=== PATIENT | female | born 1955 | race African-American/Black ===

== ENCOUNTER 2017-03-07 11:01 | Observation (INO) | payer OTHER ==
[2017-03-07 13:18] LABS: APPEARANCE,URINE CLEAR; BILIRUBIN,URINE NEGATIVE (NEGATIVE); GLUCOSE, URINE NEGATIVE (NEGATIVE); KETONES,URINE NEGATIVE (NEGATIVE); LEUKOCYTE ESTERASE,URINE NEGATIVE (NEGATIVE); NITRITE,URINE NEGATIVE (NEGATIVE); PROTEIN,URINE 30 mg/dL (NEGATIVE); URINE SPECIFIC GRAVITY 1.009; UROBILINOGEN,URINE NEGATIVE mg/dL (<2.0)
[2017-03-07 13:24] LABS: ABSOLUTE EOSINOPHILS # (AUTO) 0.1 10^3/uL (0.0-0.6); ABSOLUTE LYMPHOCYTES (AUTO) 1.4 10^3/uL (0.5-4.7); ABSOLUTE MONOCYTES (AUTO) 0.4 10^3/uL (0.1-1.4); ABSOLUTE NEUT (AUTO) 4.3 10^3/uL (1.7-8.2); BASOPHILS % (AUTO) 0.3 % (0-2); EOSINOPHILS % (AUTO) 1.4 % (0-6); HEMATOCRIT 39.5 % (36.0-47.0); HGB HCT DIFFERENCE -0.5; MEAN CORPUSCULAR HEMOGLOBIN 27.1 pg (27.0-33.4); MEAN CORPUSCULAR HGB CONC 32.8 g/dL (32.0-36.0); MEAN CORPUSCULAR VOLUME 83 fl (80-97); MONOCYTES % (AUTO) 6.5 % (3-13); RED BLOOD COUNT 4.78 10^6/uL (3.72-5.28); RED CELL DISTRIBUTION WIDTH 16.6 % (11.5-14.0); SEGMENTED NEUTROPHILS % (AUTO) 68.8 % (42-78); WHITE BLOOD COUNT 6.2 10^3/uL (4.0-10.5)
[2017-03-07] MEDS: ASPIRIN 81 MG TABLET, ENT COATED PO SCH (13:24)
[2017-03-07 13:45] LABS: ALANINE AMINOTRANSFERASE 27 U/L (9-52); ALKALINE PHOSPHATASE 151 U/L (38-126); ANION GAP 14 (5-19); ASPARTATE AMINO TRANSFERASE 21 U/L (14-36); BILIRUBIN,DIRECT 0.4 mg/dL (0.0-0.4); BILIRUBIN,TOTAL 0.8 mg/dL (0.2-1.3); BLOOD UREA NITROGEN 8 mg/dL (7-20); CALCIUM 11.3 mg/dL (8.4-10.2); CARBON DIOXIDE 27 mmol/L (22-30); CHLORIDE 107 mmol/L (98-107); CREATINE KINASE 87 U/L (30-135); CREATININE RESULT 0.83 mg/dL (0.52-1.25); GLUCOSE 90 mg/dL (75-110); POTASSIUM 3.2 mmol/L (3.6-5.0); SODIUM 147.5 mmol/L (137-145); TOTAL PROTEIN 7.4 g/dL (6.3-8.2)
[2017-03-07 13:57] LABS: CREATINE KINASE MB 0.42 ng/mL (<4.55)
[2017-03-07 14:00] LABS: TROPONIN I < 0.012 ng/mL
[2017-03-07 14:01] LABS: FREE T3 3.46 pg/mL (2.77-5.27)
[2017-03-07 14:15] LABS: THYROID STIMULATING HORMONE 0.28 uIU/mL (0.47-4.68)
--- NOTE | 2017-03-07 14:20 | EKG REPORT ---
SEVERITY:- BORDERLINE ECG - SINUS RHYTHM LVH BY VOLTAGE : Confirmed by: Katie Esquivel 07-Mar-2017 14:19:40
[2017-03-07] MEDS ORDERED: PROAIR RESPICLICK PO PRN (14:45)
[2017-03-07] MEDS: LANSOPRAZOLE 30 MG TAB.RAP.DR PO SCH (17:20)
[2017-03-07] MEDS: DOXEPIN HCL 25 MG CAPSULE PO SCH (17:20)
[2017-03-07] MEDS: TIOTROPIUM BROMIDE DPI 5 CAP/KIT (18 MCG/CAP) IH SCH (17:21)
[2017-03-07] MEDS: FOLIC ACID 1 MG TABLET PO SCH (17:21)
[2017-03-07] MEDS: HYDROCHLOROTHIAZIDE 25 MG TABLET PO SCH (17:21)
[2017-03-07] MEDS: BUDESONIDE/FORMOTEROL 160-4.5 MCG 60 PUFF/6 GM MDI IH SCH (17:22)
[2017-03-07] MEDS ORDERED: POTASSI CL 20 MEQ/NS 1L 1,000 ML IV PRN (17:46)
[2017-03-07] MEDS ORDERED: LOSARTAN POTASSIUM 50 MG TABLET PO SCH (18:00)
[2017-03-07] MEDS ORDERED: POTASSI CL 20 MEQ/50 ML RIDER 50 ML IV SCH (18:00)
[2017-03-07] MEDS ORDERED: ENALAPRILAT DIHYDRATE INJ/PF 1.25 MG/1 ML SDV IV SCH (20:15)
[2017-03-07 21:35] LABS: TROPONIN I < 0.012 ng/mL
[2017-03-08] MEDS: ENALAPRILAT DIHYDRATE INJ/PF 1.25 MG/1 ML SDV IV SCH ×4 (02:30→17:42)
[2017-03-08 05:53] LABS: CREATINE KINASE MB < 0.22 ng/mL (<4.55); TROPONIN I < 0.012 ng/mL
[2017-03-08] MEDS ORDERED: ENOXAPARIN SODIUM INJ 40 MG/0.4 ML DISP.SYRIN SUBCUT ONE (09:00)
[2017-03-08] MEDS ORDERED: METHOTREXATE SODIUM 2.5 MG TABLET PO SCH (10:00)
[2017-03-08] MEDS ORDERED: REGADENOSON INJ 0.4 MG/5 ML DISP.SYRIN IV ONE (10:16)
[2017-03-08] MEDS: BUDESONIDE/FORMOTEROL 160-4.5 MCG 60 PUFF/6 GM MDI IH SCH ×2 (10:30→17:40)
[2017-03-08 12:01] LABS: PARTIAL THROMBOPLASTIN TIME 34.3 SEC (23.5-35.8); PROTHROMBIN TIME 13.2 SEC (11.4-15.4)
[2017-03-08] MEDS: ASPIRIN 81 MG TABLET, ENT COATED PO SCH (12:14)
[2017-03-08 12:24] LABS: HEMATOCRIT 38.3 % (36.0-47.0); HEMOGLOBIN 12.7 g/dL (12.0-15.5); HGB HCT DIFFERENCE -0.2; MEAN CORPUSCULAR HEMOGLOBIN 27.3 pg (27.0-33.4); MEAN CORPUSCULAR HGB CONC 33.2 g/dL (32.0-36.0); MEAN CORPUSCULAR VOLUME 82 fl (80-97); RED BLOOD COUNT 4.65 10^6/uL (3.72-5.28); RED CELL DISTRIBUTION WIDTH 16.6 % (11.5-14.0); WHITE BLOOD COUNT 5.8 10^3/uL (4.0-10.5)
[2017-03-08 12:26] LABS: ALANINE AMINOTRANSFERASE 24 U/L (9-52); ALBUMIN 3.8 g/dL (3.5-5.0); ALKALINE PHOSPHATASE 129 U/L (38-126); ANION GAP 10 (5-19); ASPARTATE AMINO TRANSFERASE 20 U/L (14-36); BILIRUBIN,DIRECT 0.3 mg/dL (0.0-0.4); BILIRUBIN,TOTAL 0.7 mg/dL (0.2-1.3); BLOOD UREA NITROGEN 10 mg/dL (7-20); CALCIUM 10.9 mg/dL (8.4-10.2); CARBON DIOXIDE 29 mmol/L (22-30); CHLORIDE 106 mmol/L (98-107); GLUCOSE 108 mg/dL (75-110); POTASSIUM 3.1 mmol/L (3.6-5.0); SODIUM 144.9 mmol/L (137-145); TOTAL PROTEIN 6.9 g/dL (6.3-8.2)
--- NOTE | 2017-03-08 13:27 | PDOC H&P ---
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 Past Medical History Cardiac Medical History: Reports: Hypertension Pulmonary Medical History: Reports: Asthma - Severe persistent asthma Skin Medical History: Reports: Eczema Past Surgical History Past Surgical History: Reports: Appendectomy, Cholecystectomy, Tonsillectomy Social History Smoking Status: Never Smoker Drugs: None - Advance Directive Resuscitation Status: Full Code Family History Family History: Reviewed & Not Pertinent Parental Family History Reviewed: Yes Children Family History Reviewed: Yes Sibling(s) Family History Reviewed.: Yes Medication/Allergy Home Medications: Albuterol Sulfate [Proair Respiclick] 2 puff IH Q4 03/07/17 Budesonide/Formoterol Fumarate [Symbicort HFA 160-4.5 mcg Inhaler 6 gm] 2 puff IH Q12 03/07/17 Losartan/Hydrochlorothiazide [Hyzaar 100-25 Tablet] 1 each PO DAILY 03/07/17 Methotrexate Sodium [Methotrexate] 7.5 mg PO FR@1000 03/07/17 Tiotropium [place] [Spiriva Respimat] 2 puff IH DAILY 03/07/17 Allergies/Adverse Reactions: iodine [Iodine] Allergy (Verified 01/23/16 23:30) tetracycline [Tetracycline] Allergy (Verified 01/23/16 23:27) Review of Systems Constitutional: ABSENT: chills, fever(s), headache(s), weight gain, weight loss Eyes: ABSENT: visual disturbances Ears: ABSENT: hearing changes Cardiovascular: PRESENT: chest pain Respiratory: ABSENT: cough, hemoptysis Gastrointestinal: ABSENT: abdominal pain, constipation, diarrhea, hematemesis, hematochezia, nausea, vomiting Genitourinary: ABSENT: dysuria, hematuria Musculoskeletal: ABSENT: joint swelling Integumentary: ABSENT: rash, wounds Neurological: ABSENT: abnormal gait, abnormal speech, confusion, dizziness, focal weakness, syncope Psychiatric: ABSENT: anxiety, depression, homidical ideation, suicidal ideation Endocrine: ABSENT: cold intolerance, heat intolerance, menstrual abnormalities, polydipsia, polyuria Hematologic/Lymphatic: ABSENT: easy bleeding, easy bruising, lymphadenopathy Physical Exam Vital Signs: Temp Pulse Resp BP Pulse Ox 98.8 F 62 18 212/99 H 100 03/07/17 16:41 03/07/17 16:41 03/07/17 16:41 03/07/17 16:41 03/07/17 16:41 Intake & Output 03/06/17 03/07/17 03/08/17 06:59 06:59 06:59 Intake Total 237 Output Total 200 Balance 37 Weight 84.395 kg General appearance: PRESENT: no acute distress, well-developed, well-nourished Head exam: PRESENT: atraumatic, normocephalic Eye exam: PRESENT: conjunctiva pink, EOMI, PERRLA. ABSENT: scleral icterus Ear exam: PRESENT: normal external ear exam Mouth exam: PRESENT: moist, tongue midline Neck exam: PRESENT: full ROM Respiratory exam: PRESENT: clear to auscultation sol Cardiovascular exam: PRESENT: RRR, +S1, +S2 Pulses: PRESENT: normal dorsalis pedis pul, +2 pedal pulses bilateral Vascular exam: PRESENT: normal capillary refill GI/Abdominal exam: PRESENT: normal bowel sounds, soft Rectal exam: PRESENT: deferred Neurological exam: PRESENT: alert, awake, oriented to person, oriented to place , oriented to time, oriented to situation, CN II-XII grossly intact Psychiatric exam: PRESENT: appropriate affect, normal mood Skin exam: PRESENT: dry, intact, warm Results Laboratory Results: 03/07/17 13:09 03/07/17 13:09 03/07/17 03/07/17 03/07/17 13:00 13:09 13:09 WBC 6.2 RBC 4.78 Hgb 13.0 Hct 39.5 MCV 83 MCH 27.1 MCHC 32.8 RDW 16.6 H Plt Count 190 Seg Neutrophils % 68.8 Lymphocytes % 23.0 Monocytes % 6.5 Eosinophils % 1.4 Basophils % 0.3 Absolute Neutrophils 4.3 Absolute Lymphocytes 1.4 Absolute Monocytes 0.4 Absolute Eosinophils 0.1 Absolute Basophils 0.0 Sodium 147.5 H Potassium 3.2 L Chloride 107 Carbon Dioxide 27 Anion Gap 14 BUN 8 Creatinine 0.83 Est GFR ( Amer) > 60 Est GFR (Non-Af Amer) > 60 Glucose 90 Calcium 11.3 H Total Bilirubin 0.8 AST 21 ALT 27 Alkaline Phosphatase 151 H Total Protein 7.4 Albumin 4.0 TSH Free T4 Free T3 pg/mL Urine Color YELLOW Urine Appearance CLEAR Urine pH 7.0 Ur Specific [place] 1.009 Urine Protein 30 H Urine Glucose (UA) NEGATIVE Urine Ketones NEGATIVE Urine Blood NEGATIVE Urine Nitrite NEGATIVE Ur Leukocyte Esterase NEGATIVE Urine WBC (Auto) 1 Urine RBC (Auto) 1 03/07/17 13:09 WBC RBC Hgb Hct MCV MCH MCHC RDW Plt Count Seg Neutrophils % Lymphocytes % Monocytes % Eosinophils % Basophils % Absolute Neutrophils Absolute Lymphocytes Absolute Monocytes Absolute Eosinophils Absolute Basophils Sodium Potassium Chloride Carbon Dioxide Anion Gap BUN Creatinine Est GFR ( Amer) Est GFR (Non-Af Amer) Glucose Calcium Total Bilirubin AST ALT Alkaline Phosphatase Total Protein Albumin TSH 0.28 L Free T4 1.11 Free T3 pg/mL 3.46 Urine Color Urine Appearance Urine pH Ur Specific Cas[place] Urine Protein Urine Glucose (UA) Urine Ketones Urine Blood Urine Nitrite Ur Leukocyte Esterase Urine WBC (Auto) Urine RBC (Auto) 03/07/17 03/07/17 13:09 13:09 Creatine Kinase 87 CK-MB (CK-2) 0.42 Troponin I < 0.012 NT-Pro-B Natriuret Pep 120 Impressions: Chest X-Ray 03/07/17 00:00 IMPRESSION: NO SIGNIFICANT RADIOGRAPHIC FINDING IN THE CHEST. Assessment & Plan - Diagnosis (1) Chest pain Qualifiers: Chest pain type: unspecified Qualified Code(s): R07.9 - Chest pain, unspecified Is this a current diagnosis for this admission?: YesPlan: She has chest pain, the cause of the chest pain is not clear she is admitted for observation, cardiac enzymes will be drawn tomorrow morning she was scheduled for stress test (2) Hypokalemia Is this a current diagnosis for this admission?: Yes (3) Hypercalcemia Is this a current diagnosis for this admission?: YesPlan: She has hypercalcemia, PTH to be ordered to determine if this is PTH mediated hypercalcemia (4) Hypertensive urgency Is this a current diagnosis for this admission?: YesPlan: The blood pressure is quite in the hospital, she be treated with IV Vasotec 5 mg Q 6 Hour
[2017-03-08] MEDS: TIOTROPIUM BROMIDE DPI 5 CAP/KIT (18 MCG/CAP) IH SCH (17:40)
[2017-03-08] MEDS: FOLIC ACID 1 MG TABLET PO SCH (17:40)
[2017-03-08] MEDS: LANSOPRAZOLE 30 MG TAB.RAP.DR PO SCH (17:40)
[2017-03-08] MEDS: HYDROCHLOROTHIAZIDE 25 MG TABLET PO SCH (17:41)
[2017-03-08] MEDS: DOXEPIN HCL 25 MG CAPSULE PO SCH (17:42)
[2017-03-08] MEDS ORDERED: POTASSIUM CHLORIDE 10 MEQ TABLET.SA PO ONE (18:15)
[2017-03-08 18:25] VITALS: BP 133/78
--- NOTE | 2017-03-08 18:53 | PDOC DISCHARGE SUMMARY ---
General - Admit/Disc Date/PCP Admission Date/Primary Care Provider: 03/07/17 11:01 Discharge Date: 03/08/17 - Discharge Diagnosis (1) Chest pain Is this a current diagnosis for this admission?: Yes (2) Hypokalemia Is this a current diagnosis for this admission?: Yes (3) Hypercalcemia Is this a current diagnosis for this admission?: Yes (4) Hypertensive urgency Is this a current diagnosis for this admission?: Yes - Additional Information Resuscitation Status: Full Code Discharge Activity: Activity As Tolerated, Balance Activity w/Rest Home Medications: RX: Albuterol Sulfate [Proair Respiclick] 2 puff IH Q4 03/07/17 RX: Budesonide/Formoterol Fumarate [Symbicort HFA 160-4.5 mcg Inhaler 6 gm] 2 puff IH Q12 03/07/17 RX: Losartan/Hydrochlorothiazide [Hyzaar 100-25 Tablet] 1 each PO DAILY RX: Methotrexate Sodium [Methotrexate] 7.5 mg PO FR@1000 03/07/17 RX: Tiotropium [place] [Spiriva Respimat] 2 puff IH DAILY 03/07/17 History of Present Illness History of Present Illness: YUMI ARVIZU is a 61 year old female, she came to the office this morning because of acute onset chest pain, substernal chest pain, 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 Hospital Course Hospital Course: Patient was admitted because of chest pain, she was found to have hypertensive urgency, hypokalemia and hypercalcemia. PTH level was ordered result is pending , she was treated with IV Vasotec for the control of the elevated blood pressure. The potassium was replaced orally and intravenously. She underwent Cardiolite Lexiscan stress test and it was negative for any reversible ischemia. Physical Exam Vital Signs: Temp Pulse Resp BP Pulse Ox 99.1 F 62 20 133/78 H 100 03/08/17 18:23 03/08/17 18:23 03/08/17 18:23 03/08/17 18:23 03/08/17 18:23 Intake & Output 03/07/17 03/08/17 03/09/17 06:59 06:59 06:59 Intake Total 487 500 Output Total 1820 Balance -1333 500 Weight 84.4 kg General appearance: PRESENT: no acute distress, well-developed, well-nourished Head exam: PRESENT: atraumatic, normocephalic Eye exam: PRESENT: conjunctiva pink, EOMI, PERRLA. ABSENT: scleral icterus Ear exam: PRESENT: normal external ear exam Mouth exam: PRESENT: moist, tongue midline Neck exam: PRESENT: full ROM. ABSENT: carotid bruit, JVD, lymphadenopathy, thyromegaly Cardiovascular exam: PRESENT: RRR. ABSENT: diastolic murmur, rubs, systolic murmur Pulses: PRESENT: normal dorsalis pedis pul, +2 pedal pulses bilateral Vascular exam: PRESENT: normal capillary refill GI/Abdominal exam: PRESENT: normal bowel sounds, soft. ABSENT: distended, guarding, mass, organolmegaly, rebound, tenderness Rectal exam: PRESENT: deferred Neurological exam: PRESENT: alert, awake, oriented to person, oriented to place , oriented to time, oriented to situation, CN II-XII grossly intact. ABSENT: motor sensory deficit Psychiatric exam: PRESENT: appropriate affect, normal mood. ABSENT: homicidal ideation, suicidal ideation Skin exam: PRESENT: dry, intact, warm. ABSENT: cyanosis, rash Results Laboratory Results: 03/08/17 11:45 03/08/17 11:45 03/08/17 03/08/17 11:45 11:45 WBC 5.8 RBC 4.65 Hgb 12.7 Hct 38.3 MCV 82 MCH 27.3 MCHC 33.2 RDW 16.6 H Plt Count 195 Sodium 144.9 Potassium 3.1 L Chloride 106 Carbon Dioxide 29 Anion Gap 10 BUN 10 Creatinine 0.90 Est GFR ( Amer) > 60 Est GFR (Non-Af Amer) > 60 Glucose 108 Calcium 10.9 H Total Bilirubin 0.7 AST 20 ALT 24 Alkaline Phosphatase 129 H Total Protein 6.9 Albumin 3.8 03/07/17 03/07/17 03/07/17 13:09 13:09 20:40 Creatine Kinase 87 86 CK-MB (CK-2) 0.42 Troponin I < 0.012 NT-Pro-B Natriuret Pep 120 03/07/17 03/08/17 03/08/17 20:40 04:34 04:34 Creatine Kinase 67 CK-MB (CK-2) 0.50 < 0.22 Troponin I < 0.012 < 0.012 NT-Pro-B Natriuret Pep Impressions: Chest X-Ray 03/07/17 00:00 IMPRESSION: NO SIGNIFICANT RADIOGRAPHIC FINDING IN THE CHEST.
[2017-03-09] MEDS ORDERED: ENOXAPARIN SODIUM INJ 40 MG/0.4 ML DISP.SYRIN SUBCUT SCH (08:00)
--- NOTE | 2017-03-09 16:03 | DRAGON STRESS TEST REPORT ---
Intravenous LexiScan Cardiolite stress test using single photon emmision computerized tomographic. Date of procedure: 03/08/2017 Ordering Provider: Dr. Painter. Indication: Chest pain. Coronary risk factors: Age, and hypertension Resting EKG: Sinus Rhythm. Within Normal Limits. Stress EKG: No changes of ischemia. The patient had no chest pain or discomfort, but she had left shoulder pain which was relieved with drinking Pepsi. There were no arrhythmias seen. Reason for termination: Protocol. Conclusions: Normal EKG and hemodynamic response to IV LexiScan. Nuclear data: At rest the patient was given 12.01 millicuries of technetium 99 sestamibi injected intravenously. As per protocol rest non gated SPECT images were obtained. Subsequently the patient was given intravenous LexiScan at a dose of 0.4 mg in 5 mL intravenously, followed by flush with normal saline. Subsequently the stress dose of 36.5 millicuries of technetium 99 sestamibi was injected intravenously. As per protocol stress gated images were obtained. Next Nuclear interpretation: Review of images showed that there is liver and bowel contamination artifact of the inferior wall. But in spite of this all segments of the myocardium had normal perfusion at rest, and normal perfusion post stress with IV LexiScan. All segments of the myocardium had normal motion, contraction, and thickening by gated study. T. I D. ratio was normal at 0.99 Computer read rest, and stress left ventricular ejection fraction were 59 %, and 60 % respectively. Impression: 1. There is no scintigraphic evidence of LexiScan induced myocardial ischemia. 2. There is no scintigraphic evidence of myocardial infarction/scar. Recommendations: Aggressive risk factor modification, and treating the underlying co- morbidities. MTDD
== END 2017-03-08 19:32 | disposition home or self-care (01) ==
LOC: 4N 11:01
PROVIDERS: ADMIT Internal Medicine; ATTEND Internal Medicine
DX: R07.2 Precordial pain (principal); E87.6 Hypokalemia; E83.52 Hypercalcemia; I16.0 Hypertensive urgency; R00.1 Bradycardia, unspecified; J45.50 Severe persistent asthma, uncomplicated; Z90.49 Acquired absence of other specified parts of digestive tract; Z79.51 Long term (current) use of inhaled steroids; Z79.899 Other long term (current) drug therapy; Z82.49 Family history of ischemic heart disease and other diseases of the circulatory system
CPT/HCPCS: 36415 ×2; 84439; 82553 ×2; 82550 ×2; 84443; 85025; 85027; 85610; 85730; 80076; 80048; 80053; 83970; 81001; 84484 ×2; 84481; 85379; 83880; 93017; 71020; 78452; 93005; 93010; G0378 ×2; G0379; A9500; J2785; J3490 ×4; J8610; J1650; J3480; Q9969

== ENCOUNTER 2018-10-28 19:46 | Emergency (ER) | payer OTHER ==
[2018-10-28] MEDS ORDERED: DEXAMETHASONE SOD PHOS INJ 10 MG/1 ML VIAL IM ONE (21:50)
[2018-10-28] MEDS ORDERED: ONDANSETRON 4 MG TAB.RAPDIS PO ONE (21:51)
[2018-10-28] MEDS ORDERED: HYDROMORPHONE HCL INJ/PF 2 MG/ML AMPULE IM ONE (21:51)
--- NOTE | 2018-10-28 23:15 | RADIOLOGY REPORT (SQ) ---
EXAM DESCRIPTION: MR THORACIC SPINE WITHOUT IV CONTRAST COMPLETED DATE/TME: 10/28/2018 21:49 CLINICAL HISTORY: 63 years Female, t-spine pain COMPARISON: None. TECHNIQUE/LIMITATION: Conventional noncontrast MRI. FINDINGS: Normal alignment and curvature. Normal vertebral and intervertebral heights. Normal bone marrow signal. No significant disc herniation or bulge. Mild multilevel disc desiccation. Atherosclerosis. No spinal or foraminal canal compromise. Likely benign renal cysts, not definitively characterized. Soft tissues of the back, visualized posterior mediastinum, and retroperitoneum appear grossly intact. IMPRESSION: No acute findings. Mild thoracic disc desiccation.
[2018-10-28] MEDS ORDERED: LIDOCAINE 2% VISCOUS SOLN 20 ML UDCUP PO ONE (23:29)
[2018-10-28] MEDS ORDERED: MAG HYDROX/AL HYDROX/SIMETH SUSP 30 ML UDCUP PO ONE (23:29)
[2018-10-28] MEDS ORDERED: METOCLOPRAMIDE HCL ORAL SOLN 10 MG/10 ML UDCUP PO ONE (23:29)
[2018-10-29] MEDS ORDERED: LIDOCAINE 5% (700 MG) TRANSDERMAL ADH..PATCH TP ONE (00:45)
--- NOTE | 2018-10-29 00:51 | ER Document Report ---
ED General - General Chief Complaint: Back Pain Stated Complaint: BACK PAIN Time Seen by Provider: 10/28/18 21:35 Mode of Arrival: Medic Information source: Patient Notes: This is a 63-year-old female who presents to the emergency room with acute mid back pain. Patient states she was getting off the bed and went to stand up and her back just gave out. She has had a history of chronic recurrent back pain. She has had an injury to her back in the past. TRAVEL OUTSIDE OF THE [place] IN LAST 30 DAYS: No - HPI Onset: Just prior to arrival Onset/Duration: Sudden Quality of pain: Dull Severity: Moderate Pain Level: 3 Associated symptoms: denies: Chest pain, Fever, Shortness of breath Exacerbated by: Movement Relieved by: Remaining still Similar symptoms previously: Yes Recently seen / treated by doctor: Yes - Related Data Allergies/Adverse Reactions: codeine Allergy (Verified 10/28/18 19:51) iodine [Iodine] Allergy (Verified 01/23/16 23:30) tetracycline [Tetracycline] Allergy (Verified 01/23/16 23:27) Past Medical History - General Information source: Patient - Social History Smoking Status: Never Smoker Cigarette use (# per day): No Chew tobacco use (# tins/day): No Frequency of alcohol use: None Drug Abuse: None Lives with: Family Family History: Reviewed & Not Pertinent Patient has suicidal ideation: No Patient has homicidal ideation: No - Past Medical History Cardiac Medical History: Reports: Hx Hypertension Pulmonary Medical History: Reports: Hx Asthma - Severe persistent asthma Renal/ Medical History: Denies: Hx Peritoneal Dialysis Skin Medical History: Reports Hx Eczema Past Surgical History: Reports: Hx Appendectomy, Hx Cholecystectomy, Hx Tonsillectomy - Immunizations Hx Diphtheria, Pertussis, Tetanus Vaccination: Yes Hx Pneumococcal Vaccination: 08/11/17 Review of Systems - Review of Systems Constitutional: denies: Chills, Fever EENT: No symptoms reported Cardiovascular: No symptoms reported Respiratory: No symptoms reported Gastrointestinal: No symptoms reported Genitourinary: No symptoms reported Female Genitourinary: No symptoms reported Musculoskeletal: See HPI Skin: No symptoms reported Hematologic/Lymphatic: No symptoms reported Neurological/Psychological: denies: Weakness, Loss of power Physical Exam - Vital signs Vitals: Temp Pulse Resp BP Pulse Ox 97.4 F 64 16 153/79 H 97 10/28/18 19:56 10/28/18 19:56 10/28/18 19:56 10/28/18 19:56 10/28/18 19:56 Notes: Physical exam: GENERAL: She is alert and oriented x3, lying in stretcher. HEAD: Atraumatic, normocephalic. EYES: Pupils equal round and reactive to light, extraocular movements intact, sclera anicteric, conjunctiva are normal. ENT: TMs normal, nares patent, oropharynx clear without exudates. Moist mucous membranes. NECK: Normal range of motion, supple without obvious mass or JVD. LUNGS: Breath sounds clear to auscultation bilaterally and equal. No wheezes rales or rhonchi. HEART: Regular rate and rhythm without murmurs, rubs or gallops. ABDOMEN: Soft, normoactive bowel sounds. No tenderness to palpation. No guarding, no rebound. No masses appreciated. Back: Patient does have left paraspinal thoracic tenderness to palpation. Patient does have significant spasm. There is no obvious bony crepitus. EXTREMITIES: Normal range of motion, no pitting or edema. No clubbing or cyanosis. NEUROLOGICAL: Cranial nerves II through XII grossly intact. Normal speech, moving all extremities. She does have good motor to the lower extremities. She is hesitant to make sudden moves because of the back pain. But she has good strength. PSYCH: Normal mood, normal affect. SKIN: Warm, Dry, normal turgor, no rashes or lesions noted. Course - Vital Signs Vital signs: Temp Pulse Resp BP Pulse Ox 97.8 F 64 23 H 137/72 H 97 10/28/18 21:55 10/28/18 19:56 10/28/18 21:55 10/28/18 21:55 10/28/18 21:55 - Diagnostic Test Radiology reviewed: Image reviewed, Reports reviewed - MRI of the T-spine shows no obvious lesions. There is some desiccation of the disc Discharge - Discharge Clinical Impression: Acute back pain-thoracic Condition: Stable Disposition: HOME, SELF-CARE Instructions: Warm Packs ([facility]) Additional Instructions: As we discussed, the MRI of the thoracic spine looked relatively good. I want you to follow-up with Dr. Starks in the office. Return to the emergency room for worsening pain, motor weakness, sensory loss, difficulty with bowels or any concerns or getting worse. Take the Medrol Dosepak as prescribed. Take the Robaxin as prescribed. If the Lidoderm patch seems to help, fill the prescription for daily patches. Prescriptions: Lidocaine [Lidoderm 5% (700 mg) Transdermal Patch] 1 patch TP DAILY #14 adh..patch Methocarbamol [Robaxin 500 mg Tablet] 500 mg PO BID #20 tablet Methylprednisolone [Medrol 4 mg Dosepack 21 Tab/Pack] 4 mg PO ASDIR PRN #21 tab.ds.pk PRN Reason: Forms: Return to Work Referrals: JOSE M STARKS MD [Primary Care Provider] - Follow up as needed
[2018-10-29 01:20] VITALS: BP 162/74
== END 2018-10-29 01:22 | disposition home or self-care (01) ==
LOC: ER 19:46
DX: M54.6 Pain in thoracic spine (principal); I10 Essential (primary) hypertension; Z90.49 Acquired absence of other specified parts of digestive tract; Z88.6 Allergy status to analgesic agent
CPT/HCPCS: 99284; 96372; 72146; S0119; J3490; J1170; J1100

== ENCOUNTER → 2018-11-13 | Outpatient (CLI) | payer OTHER ==
--- NOTE | 2018-11-13 13:17 | RADIOLOGY REPORT (SQ) ---
EXAM DESCRIPTION: DUPLEX ART/ZACH FLOW COMPLETE COMPLETED DATE/TIME: 11/13/2018 12:44 pm REASON FOR STUDY: LOWER ABDOMINAL PAIN, UNSPECIFIED R10.30 LOWER ABDOMINAL PAIN, UNSPECIFIED M54.1 6 RADICULOPATHY, LUMBAR REGION COMPARISON: None. TECHNIQUE: Realtime and static grayscale images acquired. Selected color Doppler, velocities and spe ctral images recorded. LIMITATIONS: None. FINDINGS: RIGHT KIDNEY: RENAL ARTERY VELOCITIES: 56.5 cm/sec. Segmental artery velocity 39.2 cm/sec. RENAL VEIN: Color doppler flow present, patent. VELOCITY RATIO: 0.73. Normal waveforms. KIDNEY: Normal size. Diffuse increased echogenicity. 2.8 cm cortical cyst. LEFT KIDNEY: RENAL ARTERY VELOCITIES: 92.3 cm/sec. Segmental artery velocity 54.7 cm/sec. RENAL VEIN: Color doppler flow present, patent. VELOCITY RATIO: 1.2. Normal waveforms. KIDNEY: Normal size. Diffuse increased echogenicity. 1.6 cm cyst. BLADDER: Normal. OTHER: No other significant finding. IMPRESSION: NO DOPPLER EVIDENCE OF HEMODYNAMICALLY SIGNIFICANT RENAL ARTERY STENOSIS. DIFFUSE INCREASED ECHOGENICITY OF THE RENAL PARENCHYMA CONSISTENT WITH CHRONIC MEDICAL RENAL DISEASE. CORTICAL CYSTS IN BOTH KIDNEYS. COMMENT: NORMAL RENAL ARTERY/AORTA VELOCITY RATIO IS LESS THAN OR EQUAL TO 3.5. TECHNICAL DOCUMENTATION: JOB ID: [id number] [employer]- All Rights Reserved Reading location - IP/workstation name: [email or web address]
--- NOTE | 2018-11-13 13:19 | RADIOLOGY REPORT (SQ) ---
EXAM DESCRIPTION: MRI LUMBAR SPINE WITHOUT COMPLETED DATE/TIME: 11/13/2018 1:07 pm REASON FOR STUDY: RADICULOPATHY, LUMBAR R10.30 LOWER ABDOMINAL PAIN, UNSPECIFIED M54.16 RADICULOPA THY, LUMBAR REGION COMPARISON: None. TECHNIQUE: Sagittal and Axial imaging includes T1, T2, STIR and gradient echo sequences. Coronal T2/ HASTE imaging. LIMITATIONS: None. FINDINGS: VISUALIZED UPPER ABDOMEN: Limited evaluation. No acute or suspicious findings suggested. SEGMENTATION: No transitional anatomy. The lowest well-developed disc space is labeled L5-S1. ALIGNMENT: Anatomic. VERTEBRAE: Intact. BONE MARROW: Normal. No marrow replacement or reactive changes. DISC SIGNAL: Normal. No significant abnormal signal or loss of height. POSTERIOR ELEMENTS: Generally intact. No pars defect evident. Facet arthropathy in the lower lumba r spine. HARDWARE: None in the spine. CORD AND CONUS: Normal in size and signal intensity. Conus at the appropriate level. SOFT TISSUES: No aortic aneurysm seen. No bulky retroperitoneal adenopathy or mass. No paraspinal mas s or fluid. L1-L2: No significant spinal stenosis or exit foraminal stenosis. L2-L3: No significant spinal stenosis or exit foraminal stenosis. L3-L4: No significant spinal stenosis or exit foraminal stenosis. L4-L5: No significant spinal stenosis or exit foraminal stenosis. L5-S1: No significant spinal stenosis or exit foraminal stenosis. LOWER THORACIC: Incompletely imaged. No stenosis seen. SACRUM: Visualized upper sacrum intact. OTHER: No other significant findings. IMPRESSION: DEGENERATIVE CHANGES WITH FACET ARTHROPATHY. NO SIGNIFICANT DISC DISEASE. NO STENOSIS OR IMPINGEMENT. TECHNICAL DOCUMENTATION: JOB ID: [id number] [employer]- All Rights Reserved Reading location - IP/workstation name: [email or web address]
== END ==
LOC: RAD 10:53
PROVIDERS: ATTEND Internal Medicine
DX: R10.30 Lower abdominal pain, unspecified (principal); M54.16 Radiculopathy, lumbar region
CPT/HCPCS: 72148; 93975

== ENCOUNTER 2019-03-02 07:22 | Emergency (ER) | payer OTHER ==
[2019-03-02 09:29] VITALS: BP 160/81
[2019-03-02] MEDS ORDERED: ACETAMINOPHEN 325 MG TABLET PO ONE (09:39)
--- NOTE | 2019-03-02 09:44 | ER Document Report ---
ED General - General Chief Complaint: Back Pain Stated Complaint: BACK PAIN Time Seen by Provider: 03/02/19 09:30 Primary Care Provider: JOSE M STARKS MD [Primary Care Provider] - Follow up as needed TRAVEL OUTSIDE OF THE [place] IN LAST 30 DAYS: No - HPI Notes: Patient is a 63-year-old female that presents to the emergency department for chief complaint of low back pain. Patient reports acute onset of low back pain while at work today. She denies doing any heavy lifting or twisting at onset of pain. She was up walking around. She reports history of chronic back pain in her thoracic and lumbar spine. She states she has degenerative disc disease. She denies any saddle anesthesia, bowel or bladder incontinence, lower extremity weakness. Her pain is worse with movement and described as sharp. It is in her low back and does not radiate. She denies any relieving factors. She has not taken any medication for her pain. She does states she had an MRI of her spine within the last 3 months but does not know the results. She states that her primary care doctor does prescribe her pain medication for her back but she takes them very sparingly. She does not know the name of the pain medication. Past Medical History: COPD Past Surgical History: Reviewed in chart Social History: Reviewed in chart Family History: Reviewed and noncontributory for presenting illness Allergies: Reviewed, see documented allergy list. REVIEW OF SYSTEMS: CONSTITUTIONAL : No fever No chills No diaphoresis No recent illness EENT: No vision changes No congestion No sore throat CARDIOVASCULAR: No chest pain No palpitations RESPIRATORY: No shortness of breath No cough No difficulty breathing GASTROINTESTINAL: No abdominal pain No nausea No vomiting No diarrhea GENITOURINARY: No dysuria No hematuria No difficulty urinating MUSCULOSKELETAL: back pain No leg pain No arm pain SKIN: No rashes No lesions LYMPHATIC: No swollen, enlarged glands. NEUROLOGICAL: No lightheadedness No headache No weakness No paresthesias PSYCHIATRIC: No anxiety No depression PHYSICAL EXAMINATION: Vital signs reviewed, nursing noted reviewed. GENERAL: Well-appearing, well-nourished and in no acute distress. HEAD: Atraumatic, normocephalic. EYES: Eyes appear normal, extraocular movements intact, sclera anicteric, conjunctiva are normal. ENT: nares patent, oropharynx clear without exudates. Moist mucous membranes. NECK: Normal range of motion, supple without lymphadenopathy LUNGS: Breath sounds clear to auscultation bilaterally and equal. No wheezes rales or rhonchi. HEART: Regular rate and rhythm without murmurs ABDOMEN: Soft, nontender, normoactive bowel sounds. No rebound, guarding, or rigidity. No masses appreciated. Back: Midline L5 and bilateral SI joint tenderness, bilateral paraspinal lumbar tenderness at insertion site on iliacs, normal range of motion of lumbar spine, no thoracic tenderness, no overlying erythema or rash EXTREMITIES: Nontender, good range of motion, no pitting or edema. NEUROLOGICAL: Antalgic gait no focal neurological deficits. Moves all extremities spontaneously Motor and sensory grossly intact on exam. PSYCH: Normal mood, normal affect. SKIN: Warm, Dry, normal turgor, no rashes or lesions noted on exposed skin - Related Data Allergies/Adverse Reactions: codeine Allergy (Verified 03/02/19 07:25) iodine [Iodine] Allergy (Verified 03/02/19 07:25) tetracycline [Tetracycline] Allergy (Verified 03/02/19 07:25) Past Medical History - Social History Smoking Status: Never Smoker Chew tobacco use (# tins/day): No Frequency of alcohol use: Occasional Drug Abuse: None Family History: Reviewed & Not Pertinent Patient has suicidal ideation: No Patient has homicidal ideation: No - Past Medical History Cardiac Medical History: Reports: Hx Hypertension Pulmonary Medical History: Reports: Hx Asthma - Severe persistent asthma Renal/ Medical History: Denies: Hx Peritoneal Dialysis Skin Medical History: Reports Hx Eczema Past Surgical History: Reports: Hx Appendectomy, Hx Cholecystectomy, Hx Tonsillectomy - Immunizations Hx Diphtheria, Pertussis, Tetanus Vaccination: Yes Hx Pneumococcal Vaccination: 08/11/17 Physical Exam - Vital signs Vitals: Temp Pulse Resp BP Pulse Ox 98.0 F 51 L 16 160/81 H 99 03/02/19 07:34 03/02/19 07:34 03/02/19 07:34 03/02/19 07:34 03/02/19 07:34 Course - Re-evaluation Re-evalutation: 03/02/19 09:43 Vitals reviewed. Nursing notes reviewed. Patient is able to ambulate with a mildly antalgic gait. She has no focal neurologic deficits. She has no red flag symptoms to suggest epidural abscess, cauda equina, discitis or transverse myelitis. She had no trauma to necessitate further imaging. Patient has ch ronic back pain with a recent MRI in this area which has been managed by her primary care doctor. I did offer her a Percocet for pain which she has declined. Patient has accepted Tylenol for pain control. She states she would like to be discharged so she can go see her primary care doctor. Patient is ambulating and stable at time of discharge. - Vital Signs Vital signs: Temp Pulse Resp BP Pulse Ox 98.0 F 51 L 16 160/81 H 99 03/02/19 07:34 03/02/19 07:34 03/02/19 07:34 03/02/19 07:34 03/02/19 07:34 Discharge - Discharge Clinical Impression: Low back pain Qualifiers: Chronicity: acute Back pain laterality: bilateral Sciatica presence: without sciatica Qualified Code(s): M54.5 - Low back pain Condition: Stable Disposition: HOME, SELF-CARE Instructions: Low Back Pain ([facility]) Additional Instructions: Please return to the emergency department if you have any worsening, or concern of your symptoms. Please return to the emergency department if you develop chest pain, difficulty breathing, severe abdominal pain, or ongoing vomiting. Please follow-up with your primary care physician in 2-3 days and any other recommended physicians. If prescribed, take all medications as directed. If you have any questions or concerns do not hesitate to return the emergency department for evaluation. Referrals: JOSE M STARKS MD [Primary Care Provider] - Follow up tomorrow
== END 2019-03-02 10:15 | disposition home or self-care (01) ==
LOC: ER 07:22
DX: M54.5 Low back pain (principal); M54.6 Pain in thoracic spine; G89.29 Other chronic pain; J44.9 Chronic obstructive pulmonary disease, unspecified; I10 Essential (primary) hypertension; J45.50 Severe persistent asthma, uncomplicated; Z88.5 Allergy status to narcotic agent; Z88.1 Allergy status to other antibiotic agents
CPT/HCPCS: 99283